=== PATIENT | male | born 1960 | race African-American/Black ===

== ENCOUNTER 2021-03-10 17:07 | Emergency (ER) | payer OTHER ==
[~2021-03-10] VITALS: Ht 180.3 cm; Wt 82.0 kg
[2021-03-10 19:26] LABS: URINE BLOOD DIPSTICK LARGE (NEGATIVE); URINE COLOR BROWN; URINE GLUCOSE - DIPSTICK NEGATIVE (NEGATIVE); URINE KETONE NEGATIVE (NEGATIVE); URINE LEUK ESTERASE TRACE (NEGATIVE); URINE PH 6.5 (4.5-8.0); URINE PROTEIN - DIPSTICK 100 mg/dL (NEG-TRACE)
[2021-03-10 19:33] LABS: URINE BILIRUBIN - DIPSTICK SMALL (NEGATIVE)
[2021-03-10 19:34] LABS: URINE NITRITE - DIPSTICK POSITIVE (Negative)
[2021-03-10 19:35] LABS: URINE RBC TNTC RBC/hpf (0-5)
[2021-03-10 20:59] LABS: HEMATOCRIT 40.9 % (39.0-50.0); HEMOGLOBIN 12.9 g/dl (14.0-18.0); IMMATURE GRANULOCYTES 0.2 % (0.0-5.0); MEAN CELL VOLUME 75.5 fL CALC (80.0-100.0); MEAN CORPUSCULAR HGB 23.8 pG CALC (26.0-32.0); MEAN CORPUSCULAR HGB CONC 31.5 g/dL CAL (32.0-36.0); NEUT# 5.33 thou/uL (1.82-7.42); RED BLOOD COUNT 5.42 mill/uL (4.70-6.10); RED CELL DISTRI WIDTH 13.9 % (11.5-15.5)
[2021-03-10 21:12] LABS: ALBUMIN 4.8 g/dL (3.2-5.0); ALKALINE PHOSPHATASE 59 u/l (38-126); ANION GAP 15 (6-22 (CALC)); BILIRUBIN, TOTAL 1.2 mg/dL (0.0-1.4); BUN 10 mg/dL (9-20); BUN/CREATININE RATIO 11 (12-20 (CALC)); CARBON DIOXIDE 26 mmol/l (22-30); CHLORIDE 101 mmol/l (95-108); CREATININE 0.9 mg/dL (0.7-1.3); GFR > 60 ML/MIN (>=60 (CALC)); GFR FOR AFR.AMER. > 60 ML/MIN (>=60 (CALC)); POTASSIUM 3.9 mmol/l (3.5-5.1); SGOT/AST 28 u/l (17-59); SODIUM 138 mmol/l (137-146); TOTAL PROTEIN 8.5 g/dL (6.3-8.2)
[2021-03-10 21:49] VITALS: BP 128/74
[2021-03-10] MEDS ORDERED: KEFLEX500 MG PO (22:17)
== END 2021-03-10 23:14 | disposition home or self-care (01) | DRG 726 ==
LOC: ED 17:07
PROVIDERS: Emergency Medicine
PROC: 0T9B70Z Drainage of Bladder with Drainage Device, Via Natural or Artificial Opening (ICD-10-PCS; principal; 2021-03-10)
DX: N40.1 Benign prostatic hyperplasia with lower urinary tract symptoms (principal); R33.8 Other retention of urine; N39.0 Urinary tract infection, site not specified; R97.20 Elevated prostate specific antigen [PSA]; B19.20 Unspecified viral hepatitis C without hepatic coma
CPT/HCPCS: Q9967

== ENCOUNTER 2022-10-05 11:02 | Emergency (ER) | payer OTHER ==
[~2022-10-05] VITALS: Ht 180.3 cm; Wt 77.2 kg
[~2022-10-05 11:02] MED LIST: KEFLEX500 MG PO
[2022-10-05 11:32] VITALS: BP 175/123
[2022-10-05 11:45] VITALS: BP 153/95
[2022-10-05 14:25] VITALS: BP 153/95
[2022-10-05] MEDS ORDERED: AMOX/K CLAV875 M1 PO (15:48)
== END 2022-10-05 14:41 | disposition home or self-care (01) | DRG 605 ==
LOC: ED 11:02
PROC: 0HQ1XZZ Repair Face Skin, External Approach (ICD-10-PCS; principal; 2022-10-05)
DX: S01.81XA Laceration without foreign body of other part of head, initial encounter (principal); S09.90XA Unspecified injury of head, initial encounter; Y09 Assault by unspecified means; Z86.19 Personal history of other infectious and parasitic diseases